=== PATIENT | male | born 2000 | race Caucasian/White ===

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

== ENCOUNTER 2019-01-11 07:43 | Day surgery (SDC) | payer BC ==
[2019-01-10 10:11] VITALS: BMI 25.8
[2019-01-11] MEDS ORDERED: Bacitracin Zinc Ointment 30 gm TUBE ONE (07:53)
[2019-01-11] MEDS ORDERED: Bupivacaine PF 0.5% 30 ML VIAL ONE (07:53)
[2019-01-11] MEDS ORDERED: Betamet Acet/Betamet Na Ph 30 MG/5 ML VIAL ONE (07:53)
[2019-01-11 08:20] LABS: #Basophils 0.1 thou/uL (0.0-0.2); #Eosinphils 0.1 thou/uL (0.0-0.7); #Lymphocytes 3.2 thou/uL (1.20-3.40); #Monocytes 0.7 thou/uL (0.11-0.59); #Neutrophils 2.5 thou/uL (1.40-6.50); %Eosinophils 2.2 % (0.0-10.0); %Lymphocytes 47.7 % (28.0-48.0); %Monocytes 10.3 % (0.0-4.0); %Neutrophils 37.8 % (31.0-61.0); Hemoglobin 16.5 g/dL (14.0-18.0); Mean Corpuscular Hemoglobin 30.2 pg (25.0-35.0); Mean Corpuscular Volume 88.8 fL (78.0-98.0); Mean Platelet Volume 6.4 fL (7.4-10.4); Platelet Count 270 thou/uL (130-400); RBC Distribution Width 11.5 % (11.5-14.5); Red Blood Cell (RBC) Count 5.46 mill/uL (4.00-5.20); White Blood Cell (WBC) Count 6.7 thou/uL (4.8-10.8)
[2019-01-11] MEDS ORDERED: Fentanyl 250 MCG/5 ML VIAL ONE (08:30)
[2019-01-11] MEDS ORDERED: Midazolam HCl 2 mg/2 ml Vial ONE (09:06)
[2019-01-11] MEDS ORDERED: HYDROmorphone 2 MG/ML VIAL ONE (09:07)
--- NOTE | 2019-01-11 11:21 | RAD ---
FIntraoperative imaging of the left finger 01/11/2019 COMPARISON: None HISTORY: Tendon repair FINDINGS: Multiple metallic surgical instruments overlie an extended left finger distally at the leve l of the distal interphalangeal joint. IMPRESSION: Intraoperative imaging as above.
[2019-01-11] MEDS ORDERED: Ketorolac Tromethamine 30 MG/ML VIAL ONE ×2 (13:30→13:47)
[2019-01-11] MEDS ORDERED: Promethazine HCl 25 MG/ML VIAL ONE (13:46)
[2019-01-11] MEDS ORDERED: PROPOFOL 200 MG/20 ML VIAL ONE (13:47)
[2019-01-11] MEDS ORDERED: Dexamethasone 20 MG/5 ML VIAL ONE ×2 (13:47)
[2019-01-11] MEDS ORDERED: Lidocaine 1% PF 5 ML VIAL ONE (13:47)
[2019-01-11] MEDS ORDERED: Ondansetron PF 4 MG/2 ML Vial ONE (13:47)
--- NOTE | 2019-01-12 13:39 | OP ---
DATE OF PROCEDURE: 01/11/2019 PREOPERATIVE DIAGNOSIS: Flexor digitorum repair rupture with pseudotendon and scarring. PROCEDURES PERFORMED: 1. C-arm supervision. 2. Tenotomy, flexor digitorum profundus. 3. Tenotomy, flexor digitorum superficialis. 4. Stephen, palmaris longus graft. 5. Palmaris longus to distal phalanx graft brought through all the pulleys in appropriate position with the flexor digitorum profundus and put together with Pulvertaft weave x3 in the mid palm. FINDINGS: Residual pseudotendon, but with intact flexor digitorum superficialis repair. He had complete retraction to the A1 saturnino, the flexor digitorum profundus with a pseudotendon along most of its course between the initial tear site which was just proximal to the A3 saturnino. TOURNIQUET TIME: 120 minutes. BLOOD LOSS: 20 cc. DESCRIPTION OF PROCEDURE: After successful general LMA technique, the limb was prepped and draped. The patient had injection with a total of 50 cc of 0.5% Marcaine in the palm for metacarpophalangeal block level and he also was blocked at the harvest sites. Once the tourniquet was inflated and the limb exsanguinated, we then used his previous Monster incision, and extended it distally to visualize the entire flexor mechanism from the A2 saturnino to the tip. It was here that we found that he had a pseudotendon coursing under the chiasm, adhering slightly to the flexor digitorum superficialis, but the superficialis repairs were intact, the flexor digitorum profundus was not. We did a tenotomy to remove the pseudotendon, both the primary pseudotendon out to the level of the distal stump and the portion of the pseudotendon attached to the flexor digitorum superficialis was involved in tenotomy as well. Then, once the adhesions were lysed, we irrigated the area. We passed a 22-gauge wire into the palm and was unable to retract the flexor digitorum profundus, so we it and using blunt dissection under the A2 saturnino, went proximal with a 5 cm incision proximal to the A1 saturnino, and localized the primary tendon. We then retracted this, brought the wire to the level of the palm, proximal to the A1, A2 saturnino and prepared to harvest the graft. We removed approximately 1 cm of the distal insertion leaving approximately 8 mm area and folded this distally, and made our new trough, 5 mm wide and 2.5 mm deep just proximal to the beaver insertion. This was distal to the volar plate and we maintained the volar plate and protected neurovascular bundle. Then, we harvested the palmaris longus, removed all muscle, and placed 4 weaved dual, radial and ulnar aspect of the tendon graft, Jim suture with a 3-0 Prolene on the proximal end, passed it under the A1 remnant, A2, appropriately up to the chiasm on the A3 and A4, and then brought it to the level of the trough made in bone. C-arm confirmed the depth of the trough. We then placed 2 Perry needles in the center of the distal mid 3rd junction of trough, at appropriate angle to bring the needles out at the proximal germinal matrix, they were drilled through bone, with 1.5 cm protruding palmarly, we placed the each limb of the Prolene suture in the tendon graft in the eye of the Perry needles, pulled them through. We then held the PIP joint and the DIP joint maximally flexed and then tied this over a 1st Adaptic, then the button. We then pulled this and had excellent tension, we could completely flex the DIP joint to 60 degrees and could touch the palm Once we had done this, we then tensioned the graft appropriately, then with appropriate tension, we sutured with a 4-0 Prolene, the remnant of the flexor digitorum profundus onto the graft itself without interfering with his saturnino function. With the appropriate flexion of the DIP and PIP, we performed a Pulvertaft x3 weave and then made a fishmouth cut over each end respectively (the distal end of the recipient and the proximal end of the donor) to help reinforce this. All was then tied x3, each Pulvertaft weaved x3 and both of the terminal end sutured with 4-0 Prolene. We had excellent tension. Before we tightened it, the tourniquet had been released and we closed all the incisions on the finger. We then closed the incisions on the palm with 4-0 nylon in interrupted mattress pattern and we did the same on the palmar forearm. We injected all sites again using a total of 30 cc of 0.5% Marcaine, placed him in a bulky dressing with a dorsal block splint and the tension on the PIP and DIP was greatly exaggerated at this time and held with the patient extended against the extended PIP joint without abnormality. The patient then had bulky dressing completed, Adaptic, bacitracin, 4x4s, and Kerlix over the wound with a long-arm splint in a dorsal block technique covering the small finger well, and the patient left the operating room without evidence of anesthetic or operative complication. Job ID: [id number]
== END 2019-01-11 15:35 | disposition home or self-care (01) ==
LOC: SDC 07:43
PROVIDERS: ATTEND Orthopaedic Surgery Hand Surgery
PROC: 0LU707Z Supplement Right Hand Tendon with Autologous Tissue Substitute, Open Approach (ICD-10-PCS; principal; 2019-01-11)
PROC: 0LS80ZZ Reposition Left Hand Tendon, Open Approach (ICD-10-PCS; principal; 2019-01-11)
DX: S66.822A Laceration of other specified muscles, fascia and tendons at wrist and hand level, left hand, initial encounter (principal); S61.402A Unspecified open wound of left hand, initial encounter
CPT/HCPCS: 36415; 76000; 85025; J0131; J0690; J0702; J1100; J1170; J1885; J2001; J2250; J2405; J2550; J2704; J3010; S0020